=== PATIENT | female | born 1980 | race Caucasian/White ===

== ENCOUNTER 2018-05-04 15:11 | Inpatient (IN) | payer OTHER ==
[2018-05-04] MEDS ORDERED: Ondansetron INJ* 2 MG/ML VIAL IV ONE (16:20)
[2018-05-04] MEDS ORDERED: NS 0.9% 1000 ML* 1,000 ML IV ONE (16:20)
[2018-05-04] MEDS ORDERED: Ketorolac INJ* 30 MG/ML 1 ML VIAL IV PUSH ONE (16:20)
--- NOTE | 2018-05-04 16:48 | ED ---
Abdominal Pain/Female - HPI Summary HPI Summary: A 37 y/o female brought in by [facility] ambulance presents to [facility] with a chief complaint of abdominal pain since 14:30 05/04/18. She rates her pain as a 5/10 in the ED. Her pain is in her epigastric region. She reports some back pain but denies N/V, fevers or chills. The patient claims that she was sitting down and driving when she first felt her pain. Suddenly her pain was too intense and she pulled over and left her car on her hands and knees. She claims that at that point her pain was at a 9/10, but in the ED her condition has improved. She denies a Hx of gallstones or pancreatitis. She denies a SHx. - History of Current Complaint Chief Complaint: EDAbdPain Stated Complaint: ABD PAIN Time Seen by Provider: 05/04/18 16:00 Hx Obtained From: Patient, EMS Onset/Duration: Sudden Onset, Lasting Hours, Still Present Timing: Constant Severity Initially: Severe Severity Currently: Moderate Pain Intensity: 5 Pain Scale Used: 0-10 Numeric Location: Epigastric Radiates: No Character: Sharp Aggravating Factor(s): Nothing Alleviating Factor(s): Nothing Associated Signs and Symptoms: Positive: Negative - chills, Back Pain. Negative : Fever, Nausea, Vomiting Allergies/Adverse Reactions: Allergies Allergy/AdvReac Type Severity Reaction Status Date / Time pineapple Allergy See Comment Verified 05/04/18 15:25 Home Medications: Home Medications Norethindrone (NF) [Jewels (NF)] 0.35 mg PO DAILY 05/04/18 [History Confirmed 05/05/18] PMH/Surg Hx/FS Hx/Imm Hx Endocrine/Hematology History: Denies: Hx Diabetes Cardiovascular History: Denies: Hx Hypercholesterolemia, Hx Hypertension GI History: Denies: Hx Gall Bladder Disease, Other GI Disorders - pancreatitis - Surgical History Surgery Procedure, Year, and Place: None reported. Infectious Disease History: No Infectious Disease History: Denies: Traveled Outside the [place] in Last 30 Days - Family History Known Family History: Negative: Diabetes, Blood Disorder - Social History Alcohol Use: None Substance Use Type: Reports: None Smoking Status (MU): Never Smoked Tobacco Review of Systems Negative: Fever, Chills Positive: Abdominal Pain. Negative: Vomiting, Nausea Positive: Myalgia - back pain All Other Systems Reviewed And Are Negative: Yes Physical Exam - Summary Physical Exam Summary: GENERAL: Patient is a well-developed and nourished F who is lying comfortable in the stretcher. Patient is not in any acute respiratory distress. HEAD AND FACE: Normocephalic EYES: PERRLA, EOMI x 2. EARS: Hearing grossly intact. MOUTH: Oropharynx within normal limits. NECK: Supple, trachea is midline, no adenopathy, no JVD, no carotid bruit. CHEST: Symmetric, no tenderness at palpation LUNGS: Clear to auscultation bilaterally. No wheezing or crackles. CVS: Regular rate and rhythm, S1 and S2 present, no murmurs or gallops appreciated. ABDOMEN: Tender epigastric area. Bowel sounds are normal. No abdominal abnormal pulsations. EXTREMITIES: Full ROM in all major joints, no edema, no cyanosis or clubbing. NEURO: Alert and oriented x 3. No acute neurological deficits. Speech is normal and follows commands. SKIN: Dry and warm Triage Information Reviewed: Yes Vital Signs On Initial Exam: Initial Vitals Temp Pulse Resp BP Pulse Ox 97.2 F 70 22 124/52 100 05/04/18 15:18 05/04/18 15:18 05/04/18 15:18 05/04/18 15:18 05/04/18 15:18 Vital Signs Reviewed: Yes Diagnostics - Vital Signs Vital Signs Temp Pulse Resp BP Pulse Ox 05/04/18 15:18 97.2 F 70 22 124/52 100 - Laboratory Result Diagrams: 05/04/18 17:17 05/04/18 17:17 Lab Statement: Any lab studies that have been ordered have been reviewed, and results considered in the medical decision making process. - Ultrasound No standard instances Ultrasound Interpretation Completed By: Radiologist Summary of Ultrasound Findings: Abdomen US impression: 1. HEPATOMEGALY. 2. CHOLELITHIASIS WITHOUT SONOGRAPHIC FEATURES OF ACUTE CHOLECYSTITIS. ED physician has reviewed this imaging report. Abdominal Pain Fem Course/Dx - Course Course Of Treatment: A 37 y/o female brought in by [facility] ambulance presents to [facility] with a chief complaint of abdominal pain since 14:30 05/04/18. Workup is remarkable with the physical exam revealing a tender epigastric area. Lab results obtained. High WBC of 14.2. Abdomen US impression: 1. HEPATOMEGALY. 2. CHOLELITHIASIS WITHOUT SONOGRAPHIC FEATURES OF ACUTE CHOLECYSTITIS. In the ED course the patient was given Zofran and Toradol IV. Case discussed with Dr. Mccarthy, who reports that the patient probably has acute cholecystitis. The patient was offered admission but the patient is still deciding. The patient will be signed out to Dr. Banks at shift change pending disposition. Dx: biliary colic. - Diagnoses Provider Diagnoses: Biliary colic - Provider Notifications Discussed Care Of Patient With: Angela Mccarthy Time Discussed With Above Provider: 18:30 Instructed by Provider To: MD Will See In ED - Discussed case with Dr. Mccarthy, who will see the patient in the ED. At 18:55 she reports that the patient probably has acute cholecystitis. The patient was offered admission but the patient is still deciding. Discharge - Sign-Out/Discharge Documenting (check all that apply): Sign-Out Patient Signing out patient TO: Casimiro Banks - pending disposition - Discharge Plan Condition: Good Disposition: ADMITTED TO [facility] - Billing Disposition and Condition Condition: GOOD Disposition: Admitted to [facility] - Attestation Statements Document Initiated by Scribe: Yes Documenting Scribe: Akash Parra Provider For Whom Vincenzo is Documenting (Include Credential): Debbi Valderrama MD Scribe Attestation: I, talisha Parisibed for Debbi Valderrama MD on 05/07/18 at 1118. Scribe Documentation Reviewed: Yes Provider Attestation: The documentation as recorded by the Akash valdovinos accurately reflects the service I personally performed and the decisions made by me, Seven Valderrama MD Status of Scribe Document: Viewed
[2018-05-04 16:56] LABS: Urine Appearance Clear; Urine Bilirubin Negative (Negative); Urine Blood Negative (Negative); Urine Color Yellow; Urine Glucose Negative (Negative); Urine Ketones Negative (Negative); Urine Nitrite Negative (Negative); Urine Protein Negative (Negative); Urine Specific Gravity 1.014 (1.010-1.030); Urine Urobilinogen Negative (Negative)
[2018-05-04 17:28] LABS: ABS Basophils 0.1 10^3/ul (0-0.2); ABS Eosinophils 0.1 10^3/ul (0-0.6); ABS Lymphocytes 1.5 10^3/ul (1.0-4.8); ABS Monocytes 0.8 10^3/ul (0-0.8); ABS Neutrophils 11.8 10^3/ul (1.5-7.7); ABS Nucleated RBC 0 10^3/ul; Eosinophil % 0.5 %; Hematocrit 39 % (35-47); Hemoglobin 12.6 g/dl (12.0-16.0); Lymphocyte % 10.5 %; Mean Corpuscular HGB Conc 33 g/dl (31-36); Mean Corpuscular Hemoglobin 28 pg (27-31); Mean Corpuscular Volume 87 fL (80-97); Nucleated Red Blood Cells % 0; Platelet Count 308 10^3/ul (150-450); Red Blood Count 4.43 10^6/ul (4.00-5.40); Red Cell Distribution Width 14 % (10.5-15); White Blood Count 14.2 10^3/ul (3.5-10.8)
[2018-05-04 17:50] LABS: ALT 125 U/L (7-52); AST 253 U/L (13-39); Albumin/Globulin Ratio 1.2 (1-3); Alkaline Phosphatase 181 U/L (34-104); Anion Gap 8 mmol/L (2-11); BUN/Creatinine Ratio 19.7 (8-20); Blood Urea Nitrogen 15 mg/dL (6-24); CO2 Carbon Dioxide 28 mmol/L (22-32); Calcium 9.2 mg/dL (8.6-10.3); Chloride 103 mmol/L (101-111); EGFR Non-African American 86.1 (>60); Globulin 3.3 g/dL (2-4); Glucose 118 mg/dL (70-100); Magnesium 2.1 mg/dL (1.9-2.7); Potassium 3.6 mmol/L (3.5-5.0); Sodium 139 mmol/L (135-145); Total Protein 7.3 g/dL (6.4-8.9)
[2018-05-04 17:56] LABS: HCG Pregnancy < 0.60 mIU/mL
--- NOTE | 2018-05-04 19:03 | ED ---
Progress - Progress Note Progress Note: The patient was signed ou by Dr. Valderrama to Dr. Banks, awaiting disposition. The patient has been cleared for admission and surgery tomorrow but has not made a decision about it yet. Course/Dx - Course Course Of Treatment: Abdomen US impression: 1. HEPATOMEGALY. 2. CHOLELITHIASIS WITHOUT SONOGRAPHIC FEATURES OF ACUTE CHOLECYSTITIS. The patient will be admitted - Diagnoses Provider Diagnoses: Biliary colic - Provider Notifications Time Discussed With Above Provider: 18:30 Instructed by Provider To: Will See In ED - Discussed case with Dr. Mccarthy, who will see the patient in the ED. At 18:55 she reports that the patient probably has acute cholecystitis. Discharge - Sign-Out/Discharge Documenting (check all that apply): Patient Departure - admission, Receiving Sign-Out Receiving patient FROM: Dre Valderrama - Discharge Plan Condition: Stable Disposition: ADMITTED TO [facility] - Billing Disposition and Condition Condition: STABLE Disposition: Admitted to [facility] - Attestation Statements Document Initiated by Vincenzo: Yes Documenting Scribe: Ric Bowling Provider For Whom Vincenzo is Documenting (Include Credential): Casimiro Banks MD Scribe Attestation: Ric Randhawa, scribed for Casimiro Banks MD on 05/05/18 at 0217. Scribe Documentation Reviewed: Yes Provider Attestation: The documentation as recorded by the Ric valdovinos accurately reflects the service I personally performed and the decisions made by Casimiro pierre MD Status of Scribe Document: Viewed
[2018-05-04] MEDS: NS 0.9% 1000 ML* 2,000 ML IV ONE (21:07)
--- NOTE | 2018-05-04 21:12 | HP ---
HISTORY AND PHYSICAL/CONSULTATION NOTE: DATE OF CONSULTATION: 05/04/18. SERVICE: General Surgery. ATTENDING SURGEON: Angela Mccarthy MD. REASON FOR CONSULTATION: Right upper quadrant abdominal pain. HISTORY OF PRESENT ILLNESS: Ms. Tsai is a very pleasant 37-year-old female with no significant past medical history who presented to the emergency room with one day of sudden onset right upper quadrant and epigastric abdominal pain. The patient notes that she has been having some intermittent back pain for about two to three days, however, was feeling well and had no change in her overall health until suddenly she was driving this afternoon around 2 p.m. and she had sudden onset of severe right upper quadrant and epigastric abdominal pain. 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 She has never had this type of pain before. She is recently post- and gave in January of this year. She has never been diagnosed with gallstones before. She states that she had lunch around 12 o'clock but she has had no nausea or vomiting and she has had one episode of diarrhea yesterday. Currently, the patient feels fairly well. Her pain is improving with pain medications. PAST MEDICAL HISTORY: None. PAST SURGICAL HISTORY: None. HOME MEDICATIONS: Norethindrone. ALLERGIES: MYCIN ANTIBIOTICS. FAMILY HISTORY: Cardiac disease, her uncle, had a sudden cardiac at a young age. SOCIAL HISTORY: The patient is . She is a nonsmoker. REVIEW OF SYSTEMS: Negative except for headaches and abdominal pain. PHYSICAL EXAM: VITAL SIGNS: Temperature is 97.2, heart rate is 70, respiratory rate is 22, O2 sat is 100% O2 on room air, blood pressure is 124/52. HEENT: Normocephalic, atraumatic. RESPIRATORY: No increased work of breathing. ABDOMEN: Soft, nondistended, tender in the right upper quadrant, no rebound. EXTREMITIES: No edema. DIAGNOSTIC STUDIES/LAB DATA: White blood cell count is 14.2, hemoglobin is 12.6 , hematocrit is 39, platelets are 308. Sodium is 139, potassium is 3.6, chloride is 103, CO2 is 28, BUN is 15, creatinine is 0.76, glucose is 118. Total bilirubin is 0.7. AST is 253. ALT is 125. Alkaline phosphatase is 181. Lipase is 44. Radiology, ultrasound of the right upper quadrant on 05/04/18 shows hepatomegaly and cholelithiasis without sonographic features of acute cholecystitis. The gallbladder is distended, multiple shadowing, echogenic foci consistent with gallstones are noted. No gallbladder wall thickening, pericholecystic fluid, or sonographic Rodriguez's. The common bile duct is 7 mm. ASSESSMENT AND PLAN: Ms. Tsai is a very pleasant 37-year-old female who presents with right upper quadrant abdominal pain, elevated LFTs and elevated alkaline phosphatase, WBC 14 and right upper quadrant ultrasound showing gallstones and a distended gallbladder. Altogether, it appears that this patient has acute cholecystitis. I have discussed with the patient as well as her mother and what the diagnosis means. I discussed that the options included admission for IV antibiotics and laparoscopic cholecystectomy tomorrow. I have also told her that other options include admission for IV antibiotics and she can perform an interval cholecystectomy in the future given that she lives closer to [place]. I explained the risks, benefits and alternatives in great detail. I explained that the risks of laparoscopic cholecystectomy include but are not limited to bleeding, infection, injury to nearby structures including the common bile duct which may require a repeat surgeries and injuries to other structures. The patient has said she has reservations about staying overnight as she does not want to be from her baby and she is currently nursing. I did tell her that given that she is already taking some narcotics for pain control, I would recommend that she does not continue nursing at this time while she is on narcotics and taking antibiotics as well and she understands this. She also notes that she lives little bit further away, normally she lives closer to [place] and she is also considering just following up and having surgery closer to where she lives. She and her family would like to consider other options and will tell the emergency room physician on what they plan on doing. ADDENDUM: Patient has decided she wishes to have surgery. We will admit the patient and make her NPO after midnight. Plan for laparoscopic choelcystectomy in AM with Dr. Parker. [id number]/[facility] #: [id number] DARRELL
[2018-05-04] MEDS ORDERED: HYDROmorphone INJ* 0.5 MG/0.5 ML SYRINGE IV PRN (21:43)
[2018-05-04] MEDS ORDERED: Ondansetron INJ* 2 MG/ML VIAL IV PRN (21:43)
[2018-05-04] MEDS: Acetaminophen TAB* 325 MG PO PRN (23:13)
[2018-05-04] MEDS ORDERED: Levofloxacin 500 MG IVPREMIX(* 500 MG/100 ML BAG IVPB SCH (23:30)
[2018-05-05] MEDS: metroNIDAZOLE IV 500 MG/100ML* 500 MG/100 ML BAG IVPB SCH ×2 (01:14→09:23)
[2018-05-05] MEDS: Lactated Ringers 1000 ML Bag* 1,000 ML IV SCH ×2 (02:47→08:45)
[2018-05-05] MEDS ORDERED: Buffered Lidocaine 0.9% SYRIN* 5 ML/SYR SYRINGE INTRADERM ONE (08:21)
[2018-05-05] MEDS ORDERED: Gabapentin CAP(*) 100 MG PO ONE (08:22)
[2018-05-05] MEDS ORDERED: Acetaminophen TAB* 325 MG PO ONE (08:22)
[2018-05-05] MEDS ORDERED: fentaNYL* 50 MCG/ML 2 ML VIAL (100 MCG VIAL) ONE ×4 (08:24→11:40)
[2018-05-05] MEDS ORDERED: Midazolam* 1 MG/ML 2 ML VIAL (2 MG) ONE (08:24)
[2018-05-05] MEDS ORDERED: Acetaminophen TAB* 325 MG ONE ×2 (08:28→14:33)
[2018-05-05] MEDS ORDERED: Gabapentin CAP(*) 100 MG ONE (08:28)
[2018-05-05] MEDS ORDERED: ceFAZolin 2 GM PREMIX in ORs 2 GM/50 ML BAG IVPB ONE (08:38)
[2018-05-05] MEDS ORDERED: Lactated Ringers 1000 ML Bag* 1,000 ML IV SCH (09:00)
[2018-05-05] MEDS ORDERED: Bupivacaine 0.25% EPI 200,000* 30 ML SDV ONE (09:02)
[2018-05-05] MEDS ORDERED: Iohexol 180 (CONTRAST) 10 ML SDV IV ONE (09:02)
[2018-05-05] MEDS ORDERED: Famotidine IV* 10 MG/ML 2 ML (20 mg) ONE (09:38)
[2018-05-05] MEDS ORDERED: Lidocaine 2% PF * 5 ML VIAL ONE (09:38)
[2018-05-05] MEDS ORDERED: Propofol* 10 MG/ML 20 ML BTL ONE (09:38)
[2018-05-05] MEDS ORDERED: Rocuronium* 10 MG/ML VIAL ONE (09:38)
[2018-05-05] MEDS ORDERED: Ondansetron INJ* 2 MG/ML VIAL ONE (09:38)
[2018-05-05] MEDS ORDERED: Dexamethasone IV* 4 MG/ML 1 ML (4 MG) ONE (09:38)
[2018-05-05] MEDS ORDERED: Levalbuterol 0.63MG/3ML NEB* UNIT OF USE INH PRN (10:16)
[2018-05-05] MEDS ORDERED: fentaNYL* 50 MCG/ML 2 ML VIAL (100 MCG VIAL) IV PRN (10:16)
[2018-05-05] MEDS ORDERED: PROCHLORPERAZINE INJ 5 MG/ML 2 ML VIAL IV PRN (10:16)
[2018-05-05] MEDS ORDERED: HYDROcodone/ACETAMIN 5-325 MG* 1 TAB PO PRN (10:16)
[2018-05-05] MEDS ORDERED: Naloxone* 0.4 MG/ML 1 ML VIAL IV PRN (10:16)
[2018-05-05] MEDS ORDERED: DiMENhydriNATE IV* 50 MG/ML VIAL IV PUSH PRN (10:16)
[2018-05-05] MEDS ORDERED: Ketorolac INJ* 30 MG/ML 1 ML VIAL ONE (10:45)
--- NOTE | 2018-05-05 11:09 | BRIEFOPN ---
Brief Operative Note - Surgery Procedures: OPERATIVE REPORT PRE-OP: Acute calculous cholecystitis POST-OP:Same PROCEDURE:Laparoscopic cholecystectomy SURGEON: MD Keith ANESTHESIA:Local with General, Dr. Trevizo ASST:Kezia Suh NP IVF:One liter of crystalloid EBL:min SPECIMEN:Gallbladder DRAIN: none WOUND CLASS:Clean contaminated COMPLICATIONS: none TO PACU
[2018-05-05] MEDS ORDERED: Neostigmine Methylsulfate* 1 MG/ML 10 ML VIAL (1 mg/ml) ONE (11:18)
[2018-05-05] MEDS ORDERED: DiMENhydriNATE IV* 50 MG/ML VIAL ONE (11:37)
[2018-05-05] MEDS: Acetaminophen TAB* 325 MG PO PRN (14:35)
[2018-05-05 14:37] VITALS: BP 132/69
--- NOTE | 2018-05-08 20:40 | OP ---
DATE OF OPERATION: 05/05/18 - ROOM #342 DATE OF : 82 SURGEON: Ralph Parker MD FURNITURE INSPECTOR: Anne Suh NP ANESTHESIOLOGIST: Dr. Trevizo. ANESTHESIA: General with local. PRE-OP DIAGNOSIS: Acute calculus cholecystitis. POST-OP DIAGNOSIS: Acute calculus cholecystitis. OPERATIVE PROCEDURE: Laparoscopic cholecystectomy. ESTIMATED BLOOD LOSS: Minimal. IV FLUIDS: 1 liter of crystalloid. SPECIMENS: Gallbladder. DRAINS: None. COMPLICATIONS: None. WOUND CLASSIFICATION: III. BRIEF HISTORY: Ms. Sudha Tsai is a very pleasant 37-year-old woman who presented to the emergency room with sudden onset of right upper quadrant abdominal pain, radiating through to her mid back on the right side. In the emergency room, she was noted to have a white blood cell count of 14,000 with tenderness in the right upper quadrant. She had mild elevation of her total bilirubin as well as AST and ALT. An ultrasound of her right upper quadrant showed cholelithiasis without gallbladder wall thickening or fluid. In light of her clinical exam and history, it was felt that she has acute calculus cholecystitis. She was admitted last night and started on IV antibiotics. She was now to be taken to the operating room for a laparoscopic cholecystectomy. The procedure was discussed with the patient, and the risks of, but not limited to bleeding, infection, intraabdominal abscess formation, injury to peritoneal and retroperitoneal structures, common bile duct injury requiring further reconstruction, abscess formation, possibility of an open procedure, bile leak, and the risk of anesthesia were all explained. DESCRIPTION OF PROCEDURE: Written informed consent was obtained, the abdomen was marked with indelible ink and preoperative antibiotics were administered. The patient was taken to the operating room and placed in the supine position. Sequential compression devices and a warming blanket were applied. General anesthesia was administered. The abdomen was prepped and draped in the usual sterile fashion. Time-out verification was completed. Initially, a small transverse incision was made just below the umbilicus at the midline, and the peritoneal cavity was entered under direct vision. A 12- mm blunt port was inserted and the abdomen was insufflated to 15 mmHg. Under direct vision, a 11-mm epigastric port was placed and two 5-mm ports were placed in the right side of the upper abdominal wall. The gallbladder was identified. There were some omental adhesions which were taken down bluntly to expose the distended acutely inflamed gallbladder. There was no evidence of gangrene and the wall was mildly thickened and edematous. All these findings were consistent with acute calculus cholecystitis. The liver appeared to be unremarkable. The gallbladder was elevated up over the liver bed and the edematous thickened peritoneum along the medial and lateral aspects of the infundibular area was divided with cautery and swept down to expose the cystic duct and artery as they entered the gallbladder. I took a considerable portion of the inferior part of the gallbladder off the liver bed using the critical view technique to ensure myself of these structures. The cystic duct appeared to be of expected and normal caliber. The cystic artery and duct were then doubly clipped and divided. The gallbladder was removed from the liver bed using cautery and blunt dissection and placed in an EndoCatch bag and brought out through the umbilical incision. The liver bed was irrigated. Hemostasis was assured. No drain was placed. All ports were then removed under direct vision of the camera. The umbilical fascia was closed with interrupted 0 Vicryl suture. The skin was approximated with all 4 incisions with subcuticular 4-0 Vicryl suture. Steri-Strips, sterile dressings were applied. The patient tolerated the procedure well and was taken to the recovery room in stable condition. [id number]/[facility] #: [id number] DARRELL
== END 2018-05-05 15:58 | disposition home or self-care (01) | DRG 263 ==
LOC: ED 15:11 → SSU 21:43
PROVIDERS: ADMIT Surgery; ATTEND Surgery
PROC: 0FT44ZZ Resection of Gallbladder, Percutaneous Endoscopic Approach (ICD-10-PCS; principal; 2018-05-04)
DX: K80.00 Calculus of gallbladder with acute cholecystitis without obstruction (principal); J45.909 Unspecified asthma, uncomplicated; Z88.1 Allergy status to other antibiotic agents; Z82.49 Family history of ischemic heart disease and other diseases of the circulatory system; Z91.018 Allergy to other foods
CPT/HCPCS: 36415; 76705; 80053; 81003; 83605; 83690; 83735; 84702; 85025; 86140; 87040; 88304; 99283; A9270-GY; J0690; J1100; J1240; J1885; J1956; J2250; J2405; J2704; J2710; J3010; J3490

== ENCOUNTER 2018-05-08 15:25 | Observation (INO) | payer OTHER ==
[2018-05-08 16:54] LABS: ABS Basophils 0 10^3/ul (0-0.2); ABS Eosinophils 0.1 10^3/ul (0-0.6); ABS Lymphocytes 1.4 10^3/ul (1.0-4.8); ABS Monocytes 0.6 10^3/ul (0-0.8); ABS Neutrophils 5.1 10^3/ul (1.5-7.7); ABS Nucleated RBC 0 10^3/ul; Eosinophil % 1.4 %; Hematocrit 43 % (35-47); Hemoglobin 14.1 g/dl (12.0-16.0); Lymphocyte % 19.6 %; Mean Corpuscular HGB Conc 33 g/dl (31-36); Mean Corpuscular Hemoglobin 29 pg (27-31); Mean Corpuscular Volume 88 fL (80-97); Mean Platelet Volume 8.4 fL (7.4-10.4); Nucleated Red Blood Cells % 0.1; Platelet Count 318 10^3/ul (150-450); Red Blood Count 4.93 10^6/ul (4.00-5.40); Red Cell Distribution Width 14 % (10.5-15); White Blood Count 7.3 10^3/ul (3.5-10.8)
[2018-05-08 17:10] LABS: Albumin 4.2 g/dL (3.2-5.2); Albumin/Globulin Ratio 1.2 (1-3); BUN/Creatinine Ratio 10.7 (8-20); C Reactive Protein 6.62 mg/L (<8.01); Calcium 9.6 mg/dL (8.6-10.3); EGFR Non-African American 76.7 (>60); Globulin 3.6 g/dL (2-4); Potassium 3.7 mmol/L (3.5-5.0); Total Bilirubin 4.5 mg/dL (0.2-1.0); Total Protein 7.8 g/dL (6.4-8.9)
[2018-05-08] MEDS ORDERED: Piperacillin/Tazobac ADVAN(*) 3.375 GM in NS 0.9% 100 ML* 100 ML IVPB ONE (18:16)
[2018-05-08] MEDS ORDERED: Morphine VIAL* 4 MG/ML VIAL (1 ml vial) IV PRN (18:16)
[2018-05-08] MEDS ORDERED: Ondansetron INJ* 2 MG/ML VIAL IV PRN (18:21)
--- NOTE | 2018-05-08 18:22 | ED ---
Abdominal Pain/Female - HPI Summary HPI Summary: A 37 y/o female presents to [facility] with a chief complaint of back pain post a cholecystectomy done by Dr. Parker on 05/05/18. She also reports abd pain. The patient notes that she has been trying to ween herself off of hydrocodone, but her back pain worsened on 05/08/18. She rates her pain as 5/10. - History of Current Complaint Chief Complaint: EDAbdPain Stated Complaint: BACK PAIN POST OP Time Seen by Provider: 05/08/18 18:04 Hx Obtained From: Patient Onset/Duration: Sudden Onset, Lasting Days, Still Present Timing: Constant Severity Initially: Moderate Severity Currently: Moderate Pain Intensity: 5 Pain Scale Used: 0-10 Numeric Location: Diffuse Radiates: Yes Radiates to: Back Character: Sharp Aggravating Factor(s): Nothing Alleviating Factor(s): Nothing Associated Signs and Symptoms: Positive: Back Pain. Negative: Fever Allergies/Adverse Reactions: Allergies Allergy/AdvReac Type Severity Reaction Status Date / Time pineapple Allergy See Comment Verified 05/08/18 15:48 PMH/Surg Hx/FS Hx/Imm Hx Endocrine/Hematology History: Denies: Hx Diabetes Cardiovascular History: Denies: Hx Hypercholesterolemia, Hx Hypertension Respiratory History: Reports: Hx Asthma GI History: Denies: Hx Gall Bladder Disease, Other GI Disorders - pancreatitis Sensory History: Denies: Hx Contacts or Glasses, Hx Hearing Aid Opthamlomology History: Denies: Hx Contacts or Glasses - Surgical History Surgery Procedure, Year, and Place: None reported. Infectious Disease History: No Infectious Disease History: Denies: Traveled Outside the [place] in Last 30 Days - Family History Known Family History: Negative: Diabetes, Blood Disorder - Social History Alcohol Use: None Substance Use Type: Reports: None Smoking Status (MU): Never Smoked Tobacco Review of Systems Negative: Fever Positive: Abdominal Pain Positive: Myalgia - back pain All Other Systems Reviewed And Are Negative: Yes Physical Exam - Summary Physical Exam Summary: Appearance: The patient is well-nourished in no acute distress and in no acute pain. Skin: The skin is warm and dry and skin color reflects adequate perfusion. HEENT: The head is normocephalic and atraumatic. The pupils are equal and reactive. The conjunctivae are clear and without drainage. Nares are patent and without drainage. Mouth reveals moist mucous membranes and the throat is without erythema and exudate. The external ears are intact. The ear canals are patent and without drainage. The tympanic membranes are intact. Neck: The neck is supple with full range of motion and non-tender. There are no carotid bruits. There is no neck vein distension. Respiratory: Chest is non-tender. Lungs are clear to auscultation and breath sounds are symmetrical and equal. Cardiovascular: Heart is regular rate and rhythm. There is no murmur or rub auscultated. There is no peripheral edema and pulses are symmetrical and equal. Abdomen: RUQ tenderness. There are normal bowel sounds heard in all four quadrants and there is no organomegaly palpated. Musculoskeletal: There is no back tenderness noted. Extremities are non-tender with full range of motion. There is good capillary refill. There is no peripheral edema or calf tenderness elicited. Neurological: Patient is alert and oriented to person, place and time. The patient has symmetrical motor strength in all four extremities. Cranial nerves are grossly intact. Deep tendon reflexes are symmetrical and equal in all four extremities. Psychiatric: The patient has an appropriate affect and does not exhibit any anxiety or depression. Triage Information Reviewed: Yes Vital Signs On Initial Exam: Initial Vitals Temp Pulse Resp BP Pulse Ox 98.9 F 70 16 151/84 100 05/08/18 15:44 05/08/18 15:44 05/08/18 15:44 05/08/18 15:44 05/08/18 15:44 Vital Signs Reviewed: Yes Diagnostics - Vital Signs Vital Signs Temp Pulse Resp BP Pulse Ox 05/08/18 18:11 99.4 F 05/08/18 18:08 88 144/87 96 05/08/18 18:07 89 96 05/08/18 17:46 98.5 F 83 15 125/63 99 05/08/18 15:44 98.9 F 70 16 151/84 100 - Laboratory Lab Results: Lab Results 05/08/18 05/08/18 05/08/18 Range/Units 16:34 16:34 16:34 WBC 7.3 (3.5-10.8) 10^3/ul RBC 4.93 (4.00-5.40) 10^6/ul Hgb 14.1 (12.0-16.0) g/dl Hct 43 (35-47) % MCV 88 (80-97) fL MCH 29 (27-31) pg MCHC 33 (31-36) g/dl RDW 14 (10.5-15) % Plt Count 318 (150-450) 10^3/ul MPV 8.4 (7.4-10.4) fL Neut % (Auto) 69.6 % Lymph % (Auto) 19.6 % Irwin % (Auto) 8.7 % Eos % (Auto) 1.4 % Baso % (Auto) 0.7 % Absolute Neuts (auto) 5.1 (1.5-7.7) 10^3/ul Absolute Lymphs (auto) 1.4 (1.0-4.8) 10^3/ul Absolute Monos (auto) 0.6 (0-0.8) 10^3/ul Absolute Eos (auto) 0.1 (0-0.6) 10^3/ul Absolute Basos (auto) 0 (0-0.2) 10^3/ul Absolute Nucleated RBC 0 10^3/ul Nucleated RBC % 0.1 Sodium 136 (135-145) mmol/L Potassium 3.7 (3.5-5.0) mmol/L Chloride 100 L (101-111) mmol/L Carbon Dioxide 26 (22-32) mmol/L Anion Gap 10 (2-11) mmol/L BUN 9 (6-24) mg/dL Creatinine 0.84 (0.51-0.95) mg/dL Est GFR ( Amer) 92.8 (>60) Est GFR (Non-Af Amer) 76.7 (>60) BUN/Creatinine Ratio 10.7 (8-20) Glucose 140 H (70-100) mg/dL Lactic Acid 1.5 (0.5-2.0) mmol/L Calcium 9.6 (8.6-10.3) mg/dL Total Bilirubin 4.50 H (0.2-1.0) mg/dL AST 120 H (13-39) U/L ALT 579 H (7-52) U/L Alkaline Phosphatase 293 H (34-104) U/L C-Reactive Protein 6.62 (<8.01) mg/L Total Protein 7.8 (6.4-8.9) g/dL Albumin 4.2 (3.2-5.2) g/dL Globulin 3.6 (2-4) g/dL Albumin/Globulin Ratio 1.2 (1-3) Lipase 23 (11.0-82.0) U/L Result Diagrams: 05/08/18 16:34 05/08/18 16:34 Lab Statement: Any lab studies that have been ordered have been reviewed, and results considered in the medical decision making process. - Radiology abdomen x-ray Radiology Interpretation Completed By: Radiologist Summary of Radiographic Findings: Air-fluid level in the stomach. Stool is present in the colon. ED provider has reviewed this imaging report. - Ultrasound No standard instances Ultrasound Interpretation Completed By: Radiologist Summary of Ultrasound Findings: ABDOMEN US IMPRESSION: No sonographic findings to correlate with patient's symptomatology. ED provider has reviewed this imaging report. Abdominal Pain Fem Course/Dx - Course Course Of Treatment: Ms. Tsai presented to the emergency department several days status post cholecystectomy. She had increase in the right upper quadrant pain. She was nontoxic in appearance and her vital signs are stable here. She was tender in the right upper quadrant. She had worsening of her transaminases and bilirubin on labs. Dr. Ramos is admitting her to the hospital for further workup. - Diagnoses Provider Diagnoses: Elevated transaminase level, Post-op pain - Provider Notifications Discussed Care Of Patient With: Ralph Parker Time Discussed With Above Provider: 18:30 Instructed by Provider To: Admit As Inpatient - Informed that Dr. Parker saw the patient in the waiting room and said that the patient should be admitted to him. Discharge - Sign-Out/Discharge Documenting (check all that apply): Patient Departure - admit - Discharge Plan Condition: Fair Disposition: ADMITTED TO [facility] - Billing Disposition and Condition Condition: FAIR Disposition: Admitted to [facility] - Attestation Statements Document Initiated by Scribe: Yes Documenting Scribe: Akash Parra Provider For Whom Vincenzo is Documenting (Include Credential): Casimiro Interiano MD Scribe Attestation: Akash Randhawa, scribed for Casimiro Interiano MD on 05/08/18 at 2112. Scribe Documentation Reviewed: Yes Provider Attestation: The documentation as recorded by the Akash valdovinos accurately reflects the service I personally performed and the decisions made by me, Casimiro Interiano MD Status of Scribe Document: Viewed
[2018-05-08] MEDS: Acetaminophen TAB* 325 MG PO PRN (20:37)
[2018-05-08] MEDS: D5NS 0.9% 1000 ML BAG* 1,000 ML IV SCH (20:46)
--- NOTE | 2018-05-08 23:17 | HP ---
CC: [facility] HISTORY AND PHYSICAL: DATE OF ADMISSION: 05/08/18 REASON FOR ADMISSION: Epigastric, abdominal, and back pain with elevated bilirubin. HISTORY OF PRESENT ILLNESS: Ms. Sudha Tsai is a 37-year-old woman, who underwent a laparoscopic cholecystectomy for acute calculus cholecystitis on , this past Tuesday. She had presented last evening with a sudden onset of epigastric and right upper quadrant abdominal pain and several-day history of mid back discomfort and was noted to have a white blood cell count of 14,000. An ultrasound confirmed gallstones with a mildly dilated bile duct of 7 mm. Also noted was a mild elevation of AST, ALT, and alkaline phosphatase , but findings at surgery were that of acute calculus cholecystitis. She did well with surgery and was discharged home later that day. She states over the past several days, she has been having some mid back discomfort somewhat on the right without nausea or vomiting. She has noted no fevers, shakes, or chills. She noted her urine is somewhat darker despite being well hydrated. She has had no lower abdominal pain. She called the office this afternoon and was instructed to present to the emergency room. She was noted to be afebrile with stable vital signs. Her white blood cell count was normal. She had no tachycardia. Laboratory values, however, did show a total bilirubin of 4.5 with an AST and ALT of 120 and 529 with an alkaline phosphatase of 293. Lipase was normal. Her lactic acid was also normal. The rest of her electrolytes was unremarkable. In light of these findings on the chemistries and for postoperative symptoms, she is being admitted to the surgical service. PAST MEDICAL HISTORY: None. PAST SURGICAL HISTORY: Laparoscopic cholecystectomy. MEDICATIONS: Include norethindrone. ALLERGIES: To MYCIN ANTIBIOTICS. SOCIAL HISTORY: She is . She is a 3-month-old daughter. She is a nonsmoker. REVIEW OF SYSTEMS: Otherwise unremarkable, as per above. PHYSICAL EXAMINATION GENERAL: She is a well-nourished, well-developed female, appears to be somewhat dehydrated. She is awake, alert and conversive, and has normal attention to grooming. VITAL SIGNS: Temperature 98.9, pulse 70, blood pressure 151/84. HEENT: Sclerae anicteric. LUNGS: Clear to auscultation with normal respiratory effort. HEART: Regular rate and rhythm without murmurs, rubs, or gallops. ABDOMEN: Soft and nondistended. She has some tenderness in the upper abdomen without rebound or guarding. Incisions are clean, dry, and intact. There is no lower abdominal pain or peritoneal irritation. PSYCHIATRIC: She is awake, alert, and oriented x3. She has normal judgment and insight. IMPRESSION: Epigastric and back pain status post laparoscopic cholecystectomy on 05/05/18. Laboratory values revealed an elevated total bilirubin of 4.5 with elevated transaminases and alkaline phosphatase. She has a normal white count and no fever or tachycardia. Obvious concerns are possibility of a bile leak, a retained common bile duct stone causing obstruction or bile duct injury after laparoscopic cholecystectomy. She does not have any signs of sepsis or peritonitis at this point. She was having mid back pain several days prior to presentation as well. PLAN: 1. The patient will be admitted to the surgical service on short-stay unit. 2. She will be kept n.p.o. and started on aggressive IV hydration. She is at present, however, need additional hydration. 3. An MRCP will be obtained. 4. We will obtain Gastroenterology consult with Dr. Torres. 5. Laboratory values will be repeated in the morning. 6. I am going to start her on empiric Zosyn for prevention of cholangitis in the case of a bile duct obstruction. All of the above was discussed with the patient in detail and her questions were answered. [id number]/[facility] #: [id number] DARRELL
[2018-05-09] MEDS: Piperacillin/Tazobac ADVAN(*) 3.375 GM in NS 0.9% 100 ML* 100 ML IVPB SCH ×4 (00:11→23:48)
[2018-05-09] MEDS: D5NS 0.9% 1000 ML BAG* 1,000 ML IV SCH ×3 (03:27→22:56)
[2018-05-09] MEDS: Acetaminophen TAB* 325 MG PO PRN ×2 (05:22→20:46)
[2018-05-09 06:07] LABS: ABS Basophils 0 10^3/ul (0-0.2); ABS Eosinophils 0.1 10^3/ul (0-0.6); ABS Lymphocytes 2.4 10^3/ul (1.0-4.8); ABS Monocytes 0.6 10^3/ul (0-0.8); ABS Neutrophils 2.9 10^3/ul (1.5-7.7); ABS Nucleated RBC 0 10^3/ul; Eosinophil % 2.1 %; Hematocrit 40 % (35-47); Hemoglobin 13.2 g/dl (12.0-16.0); Mean Corpuscular HGB Conc 33 g/dl (31-36); Mean Corpuscular Hemoglobin 29 pg (27-31); Mean Corpuscular Volume 87 fL (80-97); Mean Platelet Volume 8.5 fL (7.4-10.4); Nucleated Red Blood Cells % 0.1; Platelet Count 290 10^3/ul (150-450); Red Blood Count 4.58 10^6/ul (4.00-5.40); Red Cell Distribution Width 14 % (10.5-15); White Blood Count 6.1 10^3/ul (3.5-10.8)
[2018-05-09 06:24] LABS: Albumin 3.5 g/dL (3.2-5.2); Albumin/Globulin Ratio 1.1 (1-3); BUN/Creatinine Ratio 6.8 (8-20); EGFR Non-African American 90.2 (>60); Globulin 3.2 g/dL (2-4); Indirect Bilirubin 0.9 mg/dL (0.3-1.0); Potassium 3.5 mmol/L (3.5-5.0); Total Bilirubin 2.9 mg/dL (0.2-1.0); Total Protein 6.7 g/dL (6.4-8.9)
[2018-05-09] MEDS ORDERED: Morphine VIAL* 4 MG/ML VIAL (1 ml vial) IV PRN (09:36)
--- NOTE | 2018-05-09 10:15 | PN ---
Progress Note - Progress Note Date of Service: 05/09/18 SOAP: Subjective: Some nausea Mid-back pain Objective: Temp Pulse Resp BP Pulse Ox 98.2 F 68 16 103/53 98 05/09/18 03:10 05/09/18 03:10 05/09/18 03:10 05/09/18 03:10 05/09/18 03:10 Intake & Output 05/07/18 05/08/18 05/09/18 05/10/18 06:59 06:59 06:59 06:59 Intake Total 990 110 Output Total 350 200 Balance 640 -90 Weight 160 lb Intake: IV Fluids 990 D5W NS (0.9%) 990 IVPB 110 ABX - ZOSYN 110 Oral 0 Output: Urine 350 200 PEX: Comfortable-awake and alert Lungs are clear Abd is soft and non-distended. Minimal bowel sounds. Incisions clean and dry-some ecchymosis Laboratory Last Values WBC 6.1 10^3/ul (3.5-10.8) 05/09/18 05:25 RBC 4.58 10^6/ul (4.00-5.40) 05/09/18 05:25 Hgb 13.2 g/dl (12.0-16.0) 05/09/18 05:25 Hct 40 % (35-47) 05/09/18 05:25 MCV 87 fL (80-97) 05/09/18 05:25 MCH 29 pg (27-31) 05/09/18 05:25 MCHC 33 g/dl (31-36) 05/09/18 05:25 RDW 14 % (10.5-15) 05/09/18 05:25 Plt Count 290 10^3/ul (150-450) 05/09/18 05:25 MPV 8.5 fL (7.4-10.4) 05/09/18 05:25 Neut % (Auto) 47.7 % 05/09/18 05:25 Lymph % (Auto) 40.0 % 05/09/18 05:25 Kimball % (Auto) 9.6 % 05/09/18 05:25 Eos % (Auto) 2.1 % 05/09/18 05:25 Baso % (Auto) 0.6 % 05/09/18 05:25 Absolute Neuts (auto) 2.9 10^3/ul (1.5-7.7) 05/09/18 05:25 Absolute Lymphs (auto) 2.4 10^3/ul (1.0-4.8) 05/09/18 05:25 Absolute Monos (auto) 0.6 10^3/ul (0-0.8) 05/09/18 05:25 Absolute Eos (auto) 0.1 10^3/ul (0-0.6) 05/09/18 05:25 Absolute Basos (auto) 0 10^3/ul (0-0.2) 05/09/18 05:25 Absolute Nucleated RBC 0 10^3/ul 05/09/18 05:25 Nucleated RBC % 0.1 05/09/18 05:25 Sodium 139 mmol/L (135-145) 05/09/18 05:25 Potassium 3.5 mmol/L (3.5-5.0) 05/09/18 05:25 Chloride 106 mmol/L (101-111) 05/09/18 05:25 Carbon Dioxide 23 mmol/L (22-32) 05/09/18 05:25 Anion Gap 10 mmol/L (2-11) 05/09/18 05:25 BUN 5 mg/dL (6-24) L 05/09/18 05:25 Creatinine 0.73 mg/dL (0.51-0.95) 05/09/18 05:25 Est GFR ( Amer) 109.2 (>60) 05/09/18 05:25 Est GFR (Non-Af Amer) 90.2 (>60) 05/09/18 05:25 BUN/Creatinine Ratio 6.8 (8-20) L 05/09/18 05:25 Glucose 130 mg/dL (70-100) H 05/09/18 05:25 Lactic Acid 1.5 mmol/L (0.5-2.0) 05/08/18 16:34 Calcium 9.0 mg/dL (8.6-10.3) 05/09/18 05:25 Total Bilirubin 2.90 mg/dL (0.2-1.0) H D 05/09/18 05:25 Direct Bilirubin 2.00 mg/dL (0.03-0.18) H 05/09/18 05:25 Indirect Bilirubin 0.9 mg/dL (0.3-1.0) 05/09/18 05:25 AST 86 U/L (13-39) H 05/09/18 05:25 ALT 400 U/L (7-52) H 05/09/18 05:25 Alkaline Phosphatase 264 U/L (34-104) H 05/09/18 05:25 C-Reactive Protein 6.62 mg/L (<8.01) 05/08/18 16:34 Total Protein 6.7 g/dL (6.4-8.9) 05/09/18 05:25 Albumin 3.5 g/dL (3.2-5.2) 05/09/18 05:25 Globulin 3.2 g/dL (2-4) 05/09/18 05:25 Albumin/Globulin Ratio 1.1 (1-3) 05/09/18 05:25 Lipase 23 U/L (11.0-82.0) 05/08/18 16:34 MRCP reviewed--distal CBD stones. No leak, no fluid Assessment: Choledocholithiasis s/p lap choly Hyperbilirubinemia Plan: GI Consult-tentative ERCP today, discussed with Dr. Torres NPO IVF
[2018-05-09] MEDS ORDERED: NS 0.9% 1000 ML* 1,000 ML IV ONE (10:20)
[2018-05-09] MEDS ORDERED: Propofol* 10 MG/ML 20 ML BTL ONE (13:32)
[2018-05-09] MEDS ORDERED: fentaNYL* 50 MCG/ML 2 ML VIAL (100 MCG VIAL) ONE ×2 (13:32→15:38)
[2018-05-09] MEDS: Indomethacin SUPP(NF) 50 MG SUP PR ONE ×2 (14:30→15:48)
[2018-05-09] MEDS ORDERED: Naloxone* 0.4 MG/ML 1 ML VIAL IV PRN (14:53)
[2018-05-09] MEDS ORDERED: fentaNYL* 50 MCG/ML 2 ML VIAL (100 MCG VIAL) IV PRN (14:53)
[2018-05-09] MEDS ORDERED: Ondansetron INJ* 2 MG/ML VIAL ONE (15:39)
--- NOTE | 2018-05-09 19:36 | CONS ---
GASTROENTEROLOGY CONSULT: DATE: 05/09/18 CONSULTING PHYSICIAN: Dr. Ralph Parker. REASON FOR CONSULT: Common bile duct stones 4 days after laparoscopic cholecystectomy for acute cholecystitis. HISTORY: This 37-year-old woman 3-1/2 months from her first child, developed abdominal pain on [place]. She thought it was back pain caused by carrying her infant. She could not sleep and at 5 a.m. took an oxycodone, [place] morning. The next 3 days, she just struggled with back pain. There was no nausea or vomiting. The pain got worse, so she came to the emergency room 05/04/18 via ambulance as she was somewhat stricken while driving her car. On 05/05/18, she had her gallbladder out uneventfully. Some elevated LFTs preop had not been corroborated with the ultrasound which had no shown any common duct abnormality other than being 7 mm. With an increase in pain and inability to get off hydrocodone, she came to the emergency room last night and her LFTs were higher with bilirubin now 4 and ALT 579. Overnight, she has been kept n.p.o., placed on antibiotics, and her bilirubin is down to 2.9 and ALT of 400, although she continued to have back pain. Yesterday, MRCP showed 2 common bile duct stones. PAST MEDICAL HISTORY: 1. [place] tooth extraction - just 2. 2. Asthma - on no medicines and no sign of it in 4 years. 3. Biliary tract disease. MEDICATIONS: As an outpatient, none other than BCPs. ALLERGIES: To MYCINs SOCIAL HISTORY: She was born and raised in the [place] area and her parents live in [place], which is why she was visiting here. Otherwise, she lives in [place], [place] and [place]. 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 REVIEW OF SYSTEMS: No history of cardiac, other pulmonary, or renal disease. No history of syncope, seizures, hemoptysis, TB, renal stones, hematuria, or edema. PHYSICAL EXAM: She is a healthy-appearing young woman just complaining of some back pain. She does not appear in any obvious distress. She had been medicated. HEENT exam is otherwise unremarkable. She has no adenopathy. Her lungs are clear and heart sounds are regular. Breast and pelvic exams are deferred. The abdomen shows recent trocar wounds without any erythema. The abdomen is otherwise symmetric, soft, and nontender and without abnormalities in bowel sounds. Extremities show no edema or deformity. Neurologic is nonfocal. She is an excellent historian. HOSPITAL COURSE: Overnight, she has been hydrated and given antibiotics and her LFTs improved somewhat. IMPRESSION: Common bile duct stones and the continuing pain indicates she has not successfully passed them. ERCP has been requested and seems indicated. It was discussed in detail with the patient with her present. [id number]/[facility] #: [id number] DARRELL
--- NOTE | 2018-05-09 21:17 | PRO ---
DATE: 05/09/18 - ROOM #350 REFERRING PHYSICIAN: Ralph Parker * PROCEDURE: ERCP and sphincterotomy with balloon extraction, common bile duct stones INDICATION: This 37-year-old woman, who had her gallbladder out 4 days ago, had persisting back pain. She was admitted with bilirubin of 4, ALT in the 500s , feeling a little chilly, but did not run a fever. The next day, she had a mild drop in LFTs, but persisting pain. MRCP had shown a common bile duct stone. Informed consent was obtained in a detailed discussion with her present. ENDOSCOPIST: Dr. Torres. ANESTHESIA: Per Dr Nicolas Griggs. FINDINGS: She was positioned in the semiprone position, padded and covered. She had been receiving IV antibiotics from the floor. She was given indomethacin suppository at the end of the procedure. ERCP: Esophagus - easily entered and 20% views normal. Stomach - 50% to 60% views normal. Duodenum - easily entered and the bladder mucosa was normal entirely. The papilla was fairly prominent, symmetric, there was nothing being discharged. The standard sphincterotome was inclined approximately 45 degrees and did slip in to a space at about 11 o'clock orientation. First pass of the guidewire went up the common duct and into the liver. The sphincterotome was relaxed and advanced into the duct. The wire was locked in a short wire configuration. Dye injection did not show any obvious filling defects, but the duct was fairly sizeable and the distal duct was not easily filling with a reasonable dye load. Based on the MRCP, it was decided that sphincterotomy will be done anyway. To obtain a noon orientation, a semi-long position was better and this was done and a sphincterotomy was done without any bleeding induced. Bile began to spill spontaneously. A 9 to 12 mm balloon was inserted and brought through repeatedly with retrieval of two 6 to 7 mm granular, faceted, symmetric yellow stones. There was not much in the way of other grit Several sweeps were made and a balloon occlusion cholangiogram was done and no further stones or gravel were delivered. Duct emptying was a little sluggish and so the balloon was brought through one more time and some dye spilled though was still a little sluggish, so it seemed clear that there was no mechanical problem. The procedure was terminated. IMPRESSION: 1. Normal partial views of the upper gastrointestinal tract. 2. Status post endoscopic sphincterotomy - indomethacin suppository given post procedure. 3. Common bile duct stones - cleared and LFTs to be followed. [id number]/[facility] #: [id number] [facility]
[2018-05-10] MEDS: Acetaminophen TAB* 325 MG PO PRN ×2 (04:22→14:57)
[2018-05-10] MEDS: D5NS 0.9% 1000 ML BAG* 1,000 ML IV SCH (05:34)
[2018-05-10] MEDS: Piperacillin/Tazobac ADVAN(*) 3.375 GM in NS 0.9% 100 ML* 100 ML IVPB SCH (08:00)
--- NOTE | 2018-05-10 08:48 | PN ---
Progress Note - Progress Note Date of Service: 05/10/18 SOAP: Subjective: Doing well Back pain has resolved Minimal incisional pain, no nausea and she wants to eat Objective: Temp Pulse Resp BP Pulse Ox 97.8 F 73 18 135/73 96 05/10/18 07:55 05/10/18 07:55 05/10/18 08:00 05/10/18 07:55 05/10/18 08:00 PEX: Comfortable Lungs are clear Cor is RRR Abd is soft and non--distended. Bowel sounds are present. Appropriate incisional discomfort. Incisions are CDI with some ecchymosis Assessment: S/P lap choly S/P ERCP with stone retrieval-doing well-appreciate Dr. Torres's care. Plan: Advance diet Plan d/c home later this morning
[2018-05-10 12:35] VITALS: BP 122/75
--- NOTE | 2018-05-12 19:26 | DS ---
DISCHARGE SUMMARY: DATE OF ADMISSION: 05/08/18 DATE OF DISCHARGE: 05/10/18 PRINCIPAL DIAGNOSIS: Choledocholithiasis. PROCEDURE PERFORMED: ERCP with sphincterotomy and stone retrieval. SECONDARY DIAGNOSIS: None. CONDITION ON DISCHARGE: Good. DISPOSITION: Home. MEDICATIONS: Norethindrone oral contraceptive one daily. She required no further antibiotics or pain medicine. INSTRUCTIONS FOR DISCHARGE: Followup appointment was made, Tuesday05/12/18, for her postoperative visit after undergoing laparoscopic cholecystectomy the week prior to this admission. Wound instructions and postoperative care were given. BRIEF HISTORY: Ms. Sudha Tsai is a 37-year-old woman, presented to the emergency room 4 days after undergoing a laparoscopic cholecystectomy with nausea and mid back discomfort. In the emergency room, she was noted to be afebrile with stable vital signs. She had an elevated total bilirubin of 4.3 with elevated transaminases and alkaline phosphatase. HOSPITAL COURSE: The patient underwent an MRCP on the evening of presentation which showed two stones in the distal common bile duct and no other acute findings. The patient was admitted to the surgical service and gastroenterology consultation was obtained. She underwent an ERCP on hospital day #1 with stone retrieval and sphincterotomy. Postprocedure, she did well, and on hospital day #2, her pain had resolved. She was afebrile and was tolerating diet and she was discharged home. [id number]/[facility] #: [id number] MTDKanwal
== END 2018-05-10 15:40 | disposition home or self-care (01) ==
LOC: ED 15:25 → SSU 18:13
PROVIDERS: ADMIT Surgery; ATTEND Surgery
DX: M54.9 Dorsalgia, unspecified (principal); R10.9 Unspecified abdominal pain; R11.0 Nausea; K80.50 Calculus of bile duct without cholangitis or cholecystitis without obstruction; E80.6 Other disorders of bilirubin metabolism
CPT/HCPCS: 36415; 74019; 74181; 74328; 76376; 76705; 80048; 80053; 80076; 83605; 83690; 85025; 86140; 87040; 96365; 96366; 96375; 96376; 99284; A9270-GY; C1769; G0378; J2270; J2405; J2543; J2704; J3010